=== PATIENT | male | born 1955 | race Hispanic/Latino ===

== ENCOUNTER → 2020-03-28 | Outpatient (CLI) | payer OTHER ==
[~2020-03-28] MED LIST: ATORVASTATIN CA20 MG PO; BENICAR HCT 401 EAC1 PO; BYSTOLIC10 MG PO; COVID-19 VACC, MRNA(MODERNA)/PF 100 MCG/0.5 ML VIAL IM ONE; GLYBURIDE-METF1 EAC1 PO; LANTUS 3ML100 UNITS/ SC; PIOGLITAZONE HC45 MG PO; ZESTRIL20 MG PO
== END ==
LOC: VACCPMC 18:00
DX: Z23 Encounter for immunization (principal); Z20.822 Contact with and (suspected) exposure to COVID-19

== ENCOUNTER → 2020-04-29 | Outpatient (CLI) | payer OTHER | END | DRG 951 | LOC: VACCPMC 09:26 | DX: Z23 Encounter for immunization (principal); Z20.822 Contact with and (suspected) exposure to COVID-19 | CPT/HCPCS: 0012A; 91301 ==

== ENCOUNTER 2020-06-23 17:01 | Emergency (ER) | payer OTHER ==
[~2020-06-23] VITALS: Ht 177.8 cm; Wt 113.0 kg
[~2020-06-23 17:01] MED LIST changes: -COVID-19 VACC, MRNA(MODERNA)/PF 100 MCG/0.5 ML VIAL IM ONE
[2020-06-23] MEDS ORDERED: LOSARTAN POTAS100 MG PO (17:17)
[2020-06-23] MEDS ORDERED: BASAGLAR K100 UNIT/1 SQ (17:19)
[2020-06-23] MEDS ORDERED: METOPROLOL TART50 MG PO (17:19)
[2020-06-23] MEDS ORDERED: ONDANSETRON HCL 4 MG ORAL DISINTEGRATING TAB PO ONE (17:30)
[2020-06-23] MEDS ORDERED: ONDANSETRON HCL 4 MG ORAL DISINTEGRATING TAB ONE (17:59)
[2020-06-23] MEDS ORDERED: MECLIZINE HCL 12.5 MG TAB ONE (17:59)
[2020-06-23] MEDS ORDERED: MECLIZINE HCL12.5 MG PO (18:26)
[2020-06-23] MEDS ORDERED: ONDANSETRON ODT4 MG PO (18:26)
[2020-06-23] MEDS ORDERED: SODIUM CHLORIDE 0.9% 1000ML 1,000 ML ONE (18:36)
[2020-06-23] MEDS ORDERED: SODIUM CHLORIDE 0.9% 1000ML 1,000 ML IV ONE (18:45)
[2020-06-23] MEDS ORDERED: MECLIZINE HCL 12.5 MG TAB PO SCH (21:00)
== END 2020-06-23 19:04 | disposition home or self-care (01) ==
LOC: FSED 17:25
DX: R42 Dizziness and giddiness (principal); R11.2 Nausea with vomiting, unspecified; I10 Essential (primary) hypertension; E11.9 Type 2 diabetes mellitus without complications; Z79.4 Long term (current) use of insulin
CPT/HCPCS: 70450; 80053; 85025; 99284; J7030; J8597; Q0162; 93005

== ENCOUNTER 2020-06-25 13:38 | Inpatient (IN) | payer OTHER ==
[~2020-06-25] VITALS: Ht 177.8 cm; Wt 116.6 kg
[2020-06-25] MEDS: PIPERACILLIN/TAZOBACTAM 2.25 GM in SODIUM CHLORIDE 0.9% 50ML 50 ML IV SCH ×3 (01:00→18:00)
[~2020-06-25 13:38] MED LIST changes: +BASAGLAR K100 UNIT/1 SQ; +LOSARTAN POTAS100 MG PO; +MECLIZINE HCL12.5 MG PO; +METOPROLOL TART50 MG PO; +ONDANSETRON ODT4 MG PO
[2020-06-25] MEDS ORDERED: BASAGLAR K100 UNIT/1 SQ (14:06)
[2020-06-25] MEDS ORDERED: SODIUM CHLORIDE 0.9% 1000ML 1,000 ML IV STA (14:15)
[2020-06-25 14:24] LABS: BASOPHILS # (AUTO) 0.1 (0.0-0.1); BASOPHILS % 0.5 % (0.0-1.0); EOSINOPHILS # (AUTO) 0.3 (0.0-0.4); EOSINOPHILS % 1.9 % (0.0-6.0); HEMATOCRIT 38.6 % (38.2-49.6); HEMOGLOBIN 13.5 g/dL (14.0-18.0); LYMPHOCYTES # (AUTO) 1.6 (1.0-3.2); LYMPHOCYTES % 11.3 % (18.0-39.1); MEAN CORPUSCULAR HEMOGLOBIN 32.5 pg (28-32); MONOCYTES % 6.8 % (4.4-11.3); NEUTROPHILS # (AUTO) 11.3 (2.1-6.9); NEUTROPHILS % 78.7 % (38.7-80.0); PLATELET COUNT 299 x10e3/uL (140-360); RED BLOOD COUNT 4.15 x10e6/uL (4.3-5.7); RED CELL DISTRIBUTION WIDTH 15.9 % (11.7-14.4)
[2020-06-25] MEDS ORDERED: PANTOPRAZOLE 40 MG 10ML VIAL IV NR (14:30)
[2020-06-25] MEDS ORDERED: IOPAMIDOL 370 MG/ML 200 ML INFUS..BTL INJ ONE (15:05)
[2020-06-25] MEDS ORDERED: SODIUM CHLORIDE 0.9% 50ML 0 ML ONE (15:06)
[2020-06-25 15:09] LABS: INR 1.07; PROTHROMBIN TIME 14.5 seconds (11.9-14.5)
[2020-06-25 15:10] LABS: PARTIAL THROMBOPLASTIN TIME 23.9 seconds (23.8-35.5)
[2020-06-25 15:18] LABS: ALBUMIN 1.6 g/dL (3.5-5.0); ALBUMIN/GLOBULIN RATIO 0.3 (0.8-2.0); ANION GAP 16.6 mmol/L (8-16); CALCIUM 8.7 mg/dL (8.4-10.2); CREATININE, SERUM 2.19 mg/dL (0.72-1.25); POTASSIUM 3.6 mmol/L (3.5-5.1)
[2020-06-25 15:19] LABS: CHOL/HDL RATIO 43.8 (3.9-4.7)
[2020-06-25 15:25] LABS: CREATINE KINASE MB 1.2 ng/mL (0-5.0)
[2020-06-25 15:51] LABS: MAGNESIUM 2.6 MG/DL (1.3-2.1)
[2020-06-25 16:30] LABS: CLARITY,URINE SL CLOUDY (CLEAR); COLOR,URINE YELLOW (YELLOW); KETONES,URINE NEGATIVE (NEGATIVE); LEUKOCYTE ESTERASE ,URINE NEGATIVE (NEGATIVE); NITRITE,URINE NEGATIVE (NEGATIVE); PROTEIN,URINE DIPSTICK 2+ (NEGATIVE); URINE UROBILINOGEN 0.2 mg/dL (0.2 - 1)
[2020-06-25 16:42] LABS: RBC,URINE 0-5 /HPF (0-5); WBC,URINE (MAN) 0-5 /HPF (0-5)
[2020-06-25 16:43] LABS: BACTERIA,URINE RARE /HPF; EPITHELIAL CELLS,URINE FEW /LPF
[2020-06-25] MEDS: METRONIDAZOLE 500MG/NS 100ML 100 ML IV SCH ×3 (16:50→23:41)
[2020-06-25] MEDS ORDERED: ONDANSETRON HCL INJ 2MG/ML 2ML 2 MG/ML VIAL IV PRN ×2 (17:15→21:30)
[2020-06-25] MEDS ORDERED: DEXTROSE 50% SYRINGE 50 ML IV PRN (17:15)
[2020-06-25] MEDS ORDERED: MORPHINE SULFATE INJ 2 MG/ML SYR IV PRN (17:15)
[2020-06-25] MEDS ORDERED: SODIUM CHLORIDE 0.9% 1000ML 1,000 ML IV ONE (17:15)
[2020-06-25 18:24] VITALS: BP 173/72
[2020-06-25 18:31] VITALS: BP 173/72
[2020-06-25 20:00] VITALS: BP 163/57
[2020-06-25] MEDS: INSULIN LISPRO 100 UNIT/1 ML 3ML VIAL SQ SCH (21:00)
[2020-06-25] MEDS: SODIUM CHLORIDE 0.9% 1000ML 1,000 ML IV SCH ×2 (21:30→23:40)
[2020-06-25] MEDS ORDERED: SODIUM CHLORIDE 0.9% 1000ML 1,000 ML ONE (21:44)
[2020-06-25 22:02] VITALS: BP 173/72
[2020-06-26] VITALS (9 sets, daily range): BP systolic 129–193; BP diastolic 54–73
[2020-06-26 00:30] LABS: CREATINE KINASE MB 0.9 ng/mL (0-5.0)
[2020-06-26] MEDS: METRONIDAZOLE 500MG/NS 100ML 100 ML IV SCH ×3 (05:00→17:58)
[2020-06-26] MEDS: PIPERACILLIN/TAZOBACTAM 2.25 GM in SODIUM CHLORIDE 0.9% 50ML 50 ML IV SCH ×3 (06:40→22:30)
[2020-06-26 06:56] LABS: BASOPHILS # (AUTO) 0.1 (0.0-0.1); BASOPHILS % 0.5 % (0.0-1.0); EOSINOPHILS # (AUTO) 0.2 (0.0-0.4); EOSINOPHILS % 1.2 % (0.0-6.0); HEMATOCRIT 38.2 % (38.2-49.6); HEMOGLOBIN 12.9 g/dL (14.0-18.0); LYMPHOCYTES # (AUTO) 1.1 (1.0-3.2); LYMPHOCYTES % 8.2 % (18.0-39.1); MEAN CORPUSCULAR HEMOGLOBIN 32.3 pg (28-32); MEAN CORPUSCULAR HGB CONC 33.8 g/dL (31-35); MEAN CORPUSCULAR VOLUME 95.5 fL (81-99); MONOCYTES # (AUTO) 0.8 (0.2-0.8); MONOCYTES % 6.5 % (4.4-11.3); NEUTROPHILS # (AUTO) 10.6 (2.1-6.9); NEUTROPHILS % 82.4 % (38.7-80.0); PLATELET COUNT 292 x10e3/uL (140-360); RED CELL DISTRIBUTION WIDTH 15.5 % (11.7-14.4)
[2020-06-26 07:20] LABS: ALBUMIN 1.5 g/dL (3.5-5.0); ALBUMIN/GLOBULIN RATIO 0.3 (0.8-2.0); ANION GAP 16.2 mmol/L (8-16); CALCIUM 8.4 mg/dL (8.4-10.2); CREATININE, SERUM 2.33 mg/dL (0.72-1.25); POTASSIUM 3.2 mmol/L (3.5-5.1)
[2020-06-26] MEDS: INSULIN LISPRO 100 UNIT/1 ML 3ML VIAL SQ SCH ×4 (07:30→21:00)
[2020-06-26 07:40] LABS: CREATINE KINASE MB 0.9 ng/mL (0-5.0)
[2020-06-26] MEDS: HYDRALAZINE HCL 20 MG/ML VIAL IV PRN ×2 (08:53→12:23)
[2020-06-26] MEDS: SODIUM CHLORIDE 0.9% 1000ML 1,000 ML IV SCH ×4 (08:54→23:30)
[2020-06-26] MEDS ORDERED: POTASSIUM BICARBONATE/CIT AC 20 MEQ TABLET.EFF PO NR (15:00)
[2020-06-26] MEDS: CLONIDINE HCL 0.1 MG TAB PO PRN (16:00)
[2020-06-26] MEDS: METOPROLOL TARTRATE 50 MG TAB PO SCH (16:25)
[2020-06-27] VITALS (9 sets, daily range): BP systolic 152–177; BP diastolic 54–78
[2020-06-27] MEDS: SODIUM CHLORIDE 0.9% 1000ML 1,000 ML IV SCH ×3 (00:10→17:01)
[2020-06-27] MEDS: METRONIDAZOLE 500MG/NS 100ML 100 ML IV SCH ×3 (00:38→12:32)
[2020-06-27 05:14] LABS: BASOPHILS # (AUTO) 0.1 (0.0-0.1); BASOPHILS % 0.7 % (0.0-1.0); EOSINOPHILS # (AUTO) 0.3 (0.0-0.4); EOSINOPHILS % 2.3 % (0.0-6.0); HEMATOCRIT 36.9 % (38.2-49.6); HEMOGLOBIN 12.4 g/dL (14.0-18.0); LYMPHOCYTES # (AUTO) 1.5 (1.0-3.2); LYMPHOCYTES % 12.2 % (18.0-39.1); MEAN CORPUSCULAR HEMOGLOBIN 31.6 pg (28-32); MEAN CORPUSCULAR HGB CONC 33.6 g/dL (31-35); MEAN CORPUSCULAR VOLUME 93.9 fL (81-99); MONOCYTES # (AUTO) 0.9 (0.2-0.8); MONOCYTES % 7.4 % (4.4-11.3); NEUTROPHILS # (AUTO) 9.4 (2.1-6.9); NEUTROPHILS % 76.7 % (38.7-80.0); PLATELET COUNT 362 x10e3/uL (140-360); RED BLOOD COUNT 3.93 x10e6/uL (4.3-5.7); RED CELL DISTRIBUTION WIDTH 15.4 % (11.7-14.4)
[2020-06-27 05:36] LABS: ALBUMIN 1.6 g/dL (3.5-5.0); ALBUMIN/GLOBULIN RATIO 0.3 (0.8-2.0); ANION GAP 15.2 mmol/L (8-16); CALCIUM 8.4 mg/dL (8.4-10.2); CREATININE, SERUM 2.15 mg/dL (0.72-1.25); POTASSIUM 3.2 mmol/L (3.5-5.1)
[2020-06-27] MEDS: PIPERACILLIN/TAZOBACTAM 2.25 GM in SODIUM CHLORIDE 0.9% 50ML 50 ML IV SCH ×2 (05:48→14:11)
[2020-06-27] MEDS: INSULIN LISPRO 100 UNIT/1 ML 3ML VIAL SQ SCH ×4 (07:30→22:00)
[2020-06-27] MEDS: HEPARIN SOD (PORCINE) 5,000 UNIT/ML VIAL SC SCH ×2 (09:00→22:00)
[2020-06-27] MEDS: METOPROLOL TARTRATE 50 MG TAB PO SCH ×3 (09:00→17:02)
[2020-06-27] MEDS: AMLODIPINE BESYLATE 10 MG TAB PO SCH (14:11)
[2020-06-27] MEDS ORDERED: POTASSIUM CHLORIDE 10MEQ EA PO ONE (14:30)
[2020-06-27] MEDS ORDERED: MEROPENEM 1GM 100 ML IV SCH (17:00)
[2020-06-28] VITALS (8 sets, daily range): BP systolic 156–179; BP diastolic 56–75
[2020-06-28 04:51] LABS: BASOPHILS # (AUTO) 0.1 (0.0-0.1); BASOPHILS % 0.9 % (0.0-1.0); EOSINOPHILS # (AUTO) 0.4 (0.0-0.4); EOSINOPHILS % 3.2 % (0.0-6.0); HEMOGLOBIN 12.3 g/dL (14.0-18.0); LYMPHOCYTES # (AUTO) 1.5 (1.0-3.2); MEAN CORPUSCULAR HEMOGLOBIN 31.9 pg (28-32); MEAN CORPUSCULAR HGB CONC 34.2 g/dL (31-35); MEAN CORPUSCULAR VOLUME 93.3 fL (81-99); MONOCYTES # (AUTO) 0.8 (0.2-0.8); MONOCYTES % 7.6 % (4.4-11.3); NEUTROPHILS % 73.6 % (38.7-80.0); PLATELET COUNT 344 x10e3/uL (140-360); RED BLOOD COUNT 3.86 x10e6/uL (4.3-5.7); RED CELL DISTRIBUTION WIDTH 15.5 % (11.7-14.4)
[2020-06-28 05:11] LABS: ALBUMIN 1.5 g/dL (3.5-5.0); ALBUMIN/GLOBULIN RATIO 0.3 (0.8-2.0); CALCIUM 8.2 mg/dL (8.4-10.2); CREATININE, SERUM 1.87 mg/dL (0.72-1.25)
[2020-06-28] MEDS: SODIUM CHLORIDE 0.9% 1000ML 1,000 ML IV SCH ×3 (07:10→22:54)
[2020-06-28] MEDS: INSULIN LISPRO 100 UNIT/1 ML 3ML VIAL SQ SCH ×4 (07:30→21:31)
[2020-06-28] MEDS: HEPARIN SOD (PORCINE) 5,000 UNIT/ML VIAL SC SCH ×2 (08:09→21:31)
[2020-06-28] MEDS: AMLODIPINE BESYLATE 10 MG TAB PO SCH (08:09)
[2020-06-28] MEDS: METOPROLOL TARTRATE 50 MG TAB PO SCH ×2 (08:09→16:06)
[2020-06-28] MEDS ORDERED: IOPAMIDOL 370 MG/ML 200 ML INFUS..BTL INJ ONE (09:24)
[2020-06-28] MEDS ORDERED: SODIUM CHLORIDE 0.9% 50ML 50 ML ONE (09:24)
[2020-06-28] MEDS ORDERED: SODIUM CHLORIDE 0.9% 500ML 500 ML IV ONE (09:35)
[2020-06-28] MEDS ORDERED: SODIUM CHLORIDE 0.9% 500ML 500 ML ONE (09:45)
[2020-06-28] MEDS ORDERED: SODIUM CHLORIDE 0.9% 250ML 250 ML IV ONE (13:00)
[2020-06-28] MEDS ORDERED: CEFTRIAXONE SOD 1 GM/50 ML BAG IV SCH (13:15)
[2020-06-28] MEDS: CEFTRIAXONE SOD 1 GM in SODIUM CHLORIDE 0.9% 50ML 50 ML IV SCH (13:54)
[2020-06-28] MEDS: CLONIDINE HCL 0.1 MG TAB PO PRN (21:28)
[2020-06-29] VITALS: BP 174/56
[2020-06-29] MEDS: CEFTRIAXONE SOD 1 GM in SODIUM CHLORIDE 0.9% 50ML 50 ML IV SCH ×2 (01:28→13:51)
[2020-06-29 04:00] VITALS: BP 189/75
[2020-06-29 05:08] LABS: ANION GAP 12.1 mmol/L (8-16); CALCIUM 8.2 mg/dL (8.4-10.2); CREATININE, SERUM 1.61 mg/dL (0.72-1.25); POTASSIUM 4.1 mmol/L (3.5-5.1)
[2020-06-29] MEDS: INSULIN LISPRO 100 UNIT/1 ML 3ML VIAL SQ SCH ×3 (07:30→16:35)
[2020-06-29 07:47] VITALS: BP 185/62
[2020-06-29 08:01] VITALS: BP 185/62
[2020-06-29] MEDS: AMLODIPINE BESYLATE 10 MG TAB PO SCH (08:07)
[2020-06-29] MEDS: METOPROLOL TARTRATE 50 MG TAB PO SCH ×2 (08:08→16:34)
[2020-06-29] MEDS: HEPARIN SOD (PORCINE) 5,000 UNIT/ML VIAL SC SCH (09:00)
[2020-06-29 11:52] VITALS: BP 179/65
[2020-06-29] MEDS: SODIUM CHLORIDE 0.9% 1000ML 1,000 ML IV SCH (13:09)
[2020-06-29 16:32] VITALS: BP 195/79
[2020-06-29] MEDS: CLONIDINE HCL 0.1 MG TAB PO PRN (16:34)
[2020-06-29] MEDS ORDERED: NORVASC10 MG PO (16:46)
[2020-06-29] MEDS ORDERED: CLONIDINE HCL0.1 MG PO (16:46)
[2020-06-29] MEDS ORDERED: CIPRO250 MG PO (16:54)
== END 2020-06-29 17:24 | disposition home or self-care (01) | DRG 872 ==
LOC: ER 14:02 → ERHOLD 17:14 → MED/SURG 18:10
PROVIDERS: ADMIT Internal Medicine; ATTEND Internal Medicine
DX: A41.59 Other Gram-negative sepsis (principal); N17.9 Acute kidney failure, unspecified; R18.8 Other ascites; K74.60 Unspecified cirrhosis of liver; Z79.4 Long term (current) use of insulin; E87.6 Hypokalemia; K71.0 Toxic liver disease with cholestasis; E78.5 Hyperlipidemia, unspecified; E11.22 Type 2 diabetes mellitus with diabetic chronic kidney disease; I12.9 Hypertensive chronic kidney disease with stage 1 through stage 4 chronic kidney disease, or unspecified chronic kidney disease; N18.9 Chronic kidney disease, unspecified; D64.9 Anemia, unspecified; B96.1 Klebsiella pneumoniae [K. pneumoniae] as the cause of diseases classified elsewhere; Z83.3 Family history of diabetes mellitus; Z20.822 Contact with and (suspected) exposure to COVID-19
CPT/HCPCS: 36415; 71045; 74170; 74176; 74181; 74470; 76705; 76770; 80048; 80053; 80061; 81001; 82105; 82150; 82378; 82550; 82553; 82948; 83690; 83735; 83880; 84165; 84484; 85025; 85610; 85730; 86039; 87040; 87071; 87086; 87186; 87205; 93005; 99284; J0360; J0696; J1644; J2543; J7030; J7040; J7050; J7799; Q9967; U0002

== ENCOUNTER 2020-11-26 08:54 | Emergency (ER) | payer OTHER ==
[~2020-11-26] VITALS: Ht 177.8 cm; Wt 95.8 kg
[~2020-11-26 08:54] MED LIST changes: +CIPRO250 MG PO; +CLONIDINE HCL0.1 MG PO; +NORVASC10 MG PO
[2020-11-26] MEDS ORDERED: JARDIANCE10 MG (10:12)
[2020-11-26] MEDS ORDERED: OMEPRAZOLE40 MG PO (10:12)
[2020-11-26] MEDS ORDERED: LISINOPRIL5 MG PO (10:12)
[2020-11-26] MEDS ORDERED: TRULICITY3 MG/0.5 M (10:12)
[2020-11-26] MEDS ORDERED: HUMALOG MI100 UNIT/2 SQ (10:12)
[2020-11-26] MEDS ORDERED: FUROSEMIDE40 MG PO (10:12)
[2020-11-26 10:43] LABS: BASOPHILS # (AUTO) 0.1 (0.0-0.1); EOSINOPHILS # (AUTO) 0.2 (0.0-0.4); EOSINOPHILS % 1.9 % (0.0-6.0); HEMATOCRIT 31.6 % (38.2-49.6); HEMOGLOBIN 10.6 g/dL (14.0-18.0); LYMPHOCYTES # (AUTO) 1.3 (1.0-3.2); LYMPHOCYTES % 12.5 % (18.0-39.1); MEAN CORPUSCULAR HGB CONC 33.5 g/dL (31-35); MEAN CORPUSCULAR VOLUME 95.5 fL (81-99); MONOCYTES % 10.4 % (4.4-11.3); NEUTROPHILS # (AUTO) 7.4 (2.1-6.9); NEUTROPHILS % 73.4 % (38.7-80.0); PLATELET COUNT 250 x10e3/uL (140-360); RED BLOOD COUNT 3.31 x10e6/uL (4.3-5.7); RED CELL DISTRIBUTION WIDTH 14.6 % (11.7-14.4)
[2020-11-26 11:13] LABS: CREATINE KINASE MB 0.4 ng/mL (0-5.0)
== END 2020-11-26 11:33 | disposition home or self-care (01) ==
LOC: FSED 09:14
DX: R53.1 Weakness (principal); R17 Unspecified jaundice; I10 Essential (primary) hypertension; E11.9 Type 2 diabetes mellitus without complications; E78.5 Hyperlipidemia, unspecified
CPT/HCPCS: 36415; 71045; 80053; 81003; 82550; 82553; 83880; 84484; 85025; 99284